=== PATIENT | male | born 1940 | race Caucasian/White ===

== ENCOUNTER 2017-04-09 11:05 | Day surgery (SDC) | payer OTHER ==
[2017-04-09] VITALS (8 sets, daily range): BP systolic 108–153; BP diastolic 62–96; PULSE 50–70; RESP 10–18; O2SAT 92–97
[~2017-04-09] VITALS: Ht 185.4 cm; Wt 116.2 kg
[~2017-04-09 11:05] MED LIST: AMLO5TAB2 PO; ASPI-973 PO; Bupivacaine Liposome 1.3% 20 mL Inj INFILTRATE SCH; CeFAZolin Inj 2 GM in IV Premix 1 EACH IV SCH; LEVO137T2 PO; LISI40TA PO; Lactated Ringer's 1,000 ML IV ONE; Lactated Ringer's 1,000 ML IV SCH; PROP40TA5 PO; Vancomycin Inj 2,000 MG in 0.9% Sodium Chloride 500 ML IV SCH
[2017-04-09] MEDS ORDERED: fentaNYL-PF 50 mCg/mL 2 mL Inj ONE (11:06)
[2017-04-09] MEDS ORDERED: Rocuronium 10 mg/mL 5 mL Inj ONE (11:06)
[2017-04-09] MEDS ORDERED: Glycopyrrolate 0.2 MG/ML 1mL Inj ONE (11:06)
[2017-04-09] MEDS ORDERED: Ondansetron 2 mg/mL 2 mL Inj ONE (11:06)
[2017-04-09] MEDS ORDERED: Neostigmine 1 mg/mL 10 mL Inj ONE (11:06)
[2017-04-09] MEDS ORDERED: Dexamethasone 4 mg/mL Inj ONE (11:06)
[2017-04-09] MEDS ORDERED: Propofol 10,000 mCg/mL 20 mL Inj ONE (11:06)
[2017-04-09] MEDS ORDERED: CeFAZolin 2 Gm/50 mL D5W Duplex Bag IV ONE (11:14)
[2017-04-09] MEDS ORDERED: Tranexamic Acid 100 mg/mL 10 mL Inj ONE (13:02)
[2017-04-09] MEDS ORDERED: 0.9% Sodium Chloride 100 ML ONE (13:02)
[2017-04-09] MEDS ORDERED: MetoCLOpramide 5 mg/mL 2 mL Inj IVPUSH PRN (13:10)
[2017-04-09] MEDS ORDERED: Labetalol 5 mg/mL 4 mL Inj IV PRN (13:10)
[2017-04-09] MEDS ORDERED: Lactated Ringer's 1,000 ML IV SCH (13:10)
[2017-04-09] MEDS ORDERED: fentaNYL-PF 50 mCg/mL 2 mL Inj IVPUSH PRN (13:10)
[2017-04-09] MEDS ORDERED: Phenylephrine 10,000 mCg/mL Inj IVPUSH PRN (13:10)
[2017-04-09] MEDS ORDERED: Ondansetron 2 mg/mL 2 mL Inj IVPUSH PRN (13:10)
[2017-04-09] MEDS ORDERED: Lactated Ringer's 500 ML IV PRN (13:10)
[2017-04-09] MEDS ORDERED: EPHEDrine Sulfate 50 mg/mL Inj IVPUSH PRN (13:10)
[2017-04-09] MEDS ORDERED: HYDROmorphone 1 mg/mL Inj IVPUSH PRN (13:10)
[2017-04-09] MEDS ORDERED: Atropine 0.4 mg/mL Inj IVPUSH PRN (13:10)
--- NOTE | 2017-04-09 13:10 | PCM.HPANE ---
Patient Data Surgeon Admitting Provider: Attending Provider:Eduardo Jay MD Primary Care Physician:Colleen Other Provider:Todd Ramos Anesthesia Reason for Visit Right Knee Arthritis Ht/WT & BMI Height (Feet): 6 Height (Inches): 1 Weight (Kilograms): 116.2 Body Mass Index 33.00 Allergies Coded Allergies: No Known Allergies (Unverified , 03/30/17) Past Anesthesia History Anesthesia History: Denies:: Abnormal Airway, Anesthesia Reactions, Difficult Intubation, Fam Anesthesia Reaction, Fam Malignant Hypertherm, Malignant Hyperthermia Diabetes History Hx Diabetes?: No MRSA MRSA: No Medications Blood Thinner: Aspirin Hypertension Medication: Yes Home Meds Incl Beta Endy: Yes Date Beta Endy Taken: Apr 09, 2017 Time Beta Endy Taken: 814 Previous Beta Endy Dose >24: Previous Dose <24 Hours Reported Medications Propranolol HCl 40 Mg [id number] Mg PO BID Ref 0 03/30/17 Lisinopril 40 Mg [id number] Mg PO DAILY 30 Days Ref 0 03/30/17 Levothyroxine 137 Mcg [id number] Mcg PO DAILY Ref 0 03/30/17 Aspirin 81 Mg [id number] Mg PO DAILY Ref 0 03/30/17 Amlodipine 5 Mg Tablet5 Mg PO DAILY Ref 0 03/30/17 History History of ENT Problems?: Yes HEENT History: Positive for:: Hearing Problem Sinus Problem (post nasal drip ) Denies:: Abnormal Airway (hx of glottic spasm with panic attacks) Cataracts Difficult Intubation Dysphagia Glaucoma TMJ Denture Type: None Teeth Condition: Within Normal Limits Hx of Heart Problems?: Yes Cardiovascular History: Positive for:: Hypertension Denies:: AICD Abdominal Aortic Aneurism Atrial Fibrillation Cardiac Surgery Coronary Artery Disease Edema Heart Murmur Irregular Heartbeat Pacemaker Peripheral Vascular Other Cardiac History: denies CP/GEIGER > 4 METS Hx of Respiratory Problem?: Yes Respiratory History: Positive for:: Use of C-PAP Machine Denies:: Asthma COPD Emphysema Oxygen Administration Pneumonia Tuberculosis Use of Inhalers / NEBS Hx Neurologic Problems?: Yes Neurological History: Positive for:: TIA (10 years ago- no residual ) Denies:: CVA Headaches Multiple Sclerosis Parkinson's Disease Seizures Hx of GI Problems?: No Other GI Pertinent History: hx of inguinal hernia repair Hx of Problems?: No Genitourinary History: Denies:: Kidney Stones Urinary Tract Infection Male Hx: Positive for:: Prostate Problems (PSA being monitored) Testicular Surgery (hx of left partial orchiectomy) Skin History: Denies:: History Skin Disorders? Pressure Ulcers Hx Musculoskeletal Problems?: Yes Musculoskeletal History: Positive for:: Back Injury (low back pain) Degenerative Joint Musculoskeletal Trauma (right knee current admission problem) Osteoarthritis (left knee also symptomatic ) Denies:: Fibromyalgia Joint Replacement Myasthenia Gravis Systemic Lupus Hx of Psycho/Social Problems?: No Psycho Social History: Denies:: Anxiety Hx Depression Hx Surgeries?: Yes (vas, left partial orchiectomy, inguinal hernia ) Hx Any Other Health Problems?: Yes Other History: Positive for:: Cancer (right forearm forearm ) Denies:: Thyroid Disease History Blood Transfusions: Positive for:: Accept Blood Products? Denies:: Blood Transfusions Hx Diabetes: No Hx Alcohol Use: YesAlcoholic Drinks Per Day: holidays onlyHx Substance Use: No (remote hx )Have You Smoked inLast 12 mo: No Stop/Bang S-Snoring: Do You Snore Loudly: No T-Tired: feel tired, fatigued: No O-Obsered: Observed not breath: No P-Blood Pressure: treated: Yes B- Body Mass Index > 35 kg/m2: Yes A- Age over 50: Yes N- Neck Large Circumference: No G- Gender Male: Yes JANET Total Score: 4 JANET Risk Assessment: High Risk, =/>3 Yes Risk Assessment Category Category 1A: Patient has history of documented sleep apnea, and HAS NOT received any narcotic, sedative or anesthesia administration during this stay. Category 1B: Patient has history of documented sleep apnea, and HAS received any narcotic , sedative or anesthesia administration during this stay Category 2: Patient has SUSPECTED Obstructive Sleep Apnea, and HAS received any narcotic , sedative or anesthesia administration during this stay. Category 3: Patient has SUSPECTED Obstructive Sleep Apnea and HAS NOT received narcotic, sedative or anesthesia administration during this stay. Category 4: Outpatient in Procedural Areas with known sleep apnea or who screen positive for High Risk via the STOP/BANG questionnaire. Exam Exam Vital Signs Vital Signs Date Time Temp Pulse Resp B/P Pulse Ox O2 Delivery O2 Flow Rate FiO2 04/09/17 11:40 36.4 70 16 153/96 96 Room Air General Appearance: Alert, Oriented X3, Cooperative, No Acute Distress HEENT/AIRWAY: MP 2 Lungs: Clear to Auscultation, Normal Air Movement Heart: Exam Unremarkable, Regular Rate/Rhythm, No Murmurs/Rubs/Gallops Meds/Labs/Diagnostics Admission Meds Current Medications Lactated Ringer's (Lr) 1,000 ml @ 120 mls/hr [id number] ONCE IV Last administered on 04/09/17 11:40; Start 04/09/17 at 05:00; Stop 04/09/17 at 13:19 Plan Impression Patient chart reviewed, patient interviewed and anesthestic plan with risks, benefits, and alternatives discussed, and informed consent obtained. NPO per Anesth. Guidelines: Yes ASA Physical Status: ASA2 Mod Systemic Disease Anesthetic Plan: GA Bene/Risks/Altern/Consents: Yes HP Complete Prior to Induction: Yes Dante Espinoza MD Apr 09, 2017 12:04
[2017-04-09] MEDS ORDERED: Bupivacaine-MPF 0.5% W/EPI 30 mL Inj INFILTRATE ONE (13:56)
[2017-04-09] MEDS ORDERED: Bupivacaine Liposome 1.3% 20 mL Inj INFILTRATE ONE (13:56)
[2017-04-09] MEDS ORDERED: Gentamicin 40 mg/mL 2 mL Inj IRRIGATION ONE (13:56)
[2017-04-09] MEDS ORDERED: Lactated Ringer's 1,000 ML IV ONE (14:33)
[2017-04-09] MEDS ORDERED: hydrOXYzine Pamoate 25 mg Capsule PO PRN (15:00)
[2017-04-09] MEDS ORDERED: oxyCODONE-Acetamin 5-325 mg Tablet PO PRN (15:00)
[2017-04-09] MEDS ORDERED: Ketorolac 15 mg/mL Inj IVPUSH ONE (15:00)
--- NOTE | 2017-04-09 15:04 | PCM.ANEP1 ---
Post Anesthesia PACU Phase 1 Assessment Vital Signs Vital Signs Date Time Temp Pulse Resp B/P Pulse Ox O2 Delivery O2 Flow Rate FiO2 04/09/17 15:00 51 15 122/78 97 Simple Mask 10 04/09/17 14:55 55 16 130/82 97 Simple Mask 10 04/09/17 14:50 37.1 55 18 127/79 97 Simple Mask 10 04/09/17 11:40 36.4 70 16 153/96 96 Room Air Anesthetic Administered: GA Level of Alertness: Awake, talking ZAMAN's with Equal Strength: Yes Pain: No Nausea or Vomiting: No CV Function & Hydration Stable: Yes Airway Device: Endotrachial Tube Oxygen Delivery: Simple Mask Lungs: Clear to Auscultation, Normal Air Movement PACU Phase 2 Assessment Complications: No Follow up Care: N/A Patient Instructions Provided: N/A Dante Espinoza MD Apr 09, 2017 15:04
--- NOTE | 2017-04-09 17:02 | DRSVH ---
PROCEDURE: X-RAY RIGHT KNEE, ONE OR TWO VIEWS ([id number]) INDICATIONS: postop TECHNIQUE: 2 view(s) of the knee acquired. COMPARISON: [facility], CR, XR KNEE ARTHRITIC SERIES RT, 03/13/2017, 9:04. FINDINGS: Bones: Patient is status post medial compartment knee joint arthroplasty. Hardware components are i n expected positions. Visualized bony structures are intact. Soft tissues: Overlying postoperative changes are noted. IMPRESSION: Expected appearance following medial compartment arthroplasty. Dictated by: Aryan Hernandez M.D. on 04/09/2017 at 17:00 Approved by: Aryan Hernandez M.D. on 04/09/2017 at 17:01
--- NOTE | 2017-04-09 21:21 | OP ---
[address] [address] OPERATIVE REPORT PATIENT: FERMIN MARQUEZ : 1940 MR#: [id number] ADMIT: 04/09/2017 JOB ID: [id number] DATE OF SURGERY: 04/09/2017 PREOPERATIVE DIAGNOSIS(ES): Severe medial compartment osteoarthritis, right knee. POSTOPERATIVE DIAGNOSIS(ES): Severe medial compartment osteoarthritis, right knee. PROCEDURE: Unicompartmental knee arthroplasty. SURGEON: Eduardo Jay MD. RN MILITARY: Areli Smith PA-C. COMPLICATIONS: None. INDICATIONS: This gentleman has had severe progressive osteoarthritic symptoms uncontrolled by conservative treatment techniques. He elects to proceed with the unicompartmental knee arthroplasty. He understands and accepts the potential for risks and complications, which includes but is not limited to, infection, thromboembolic, neurovascular events, as well as a potential for progressive arthritis in unresurfaced compartments and implant failure. PROCEDURE IN DETAIL: The patient was prepped and draped in usual sterile fashion. An anteromedial approach was made. Dissection was carried down. Frontal bossing and a patellar osteophyte was removed. The alignment apparatus was assembled and the proximal tibial cut was made. The tibial cut was completed with the sagittal blade. The bone fragments were removed. A 9 spacer block was applied. Excellent alignment. Soft tissue tension was achieved and the distal femoral cut was made. The femur was sized to a 7 chamfer cutting block, fixed in appropriate position and rotation, and drill holes and chamfer cuts were made. The tibia was subsequently sized to a 6 provisionally fixed. Drill holes were made. Trial reductions confirmed 9 mm polyethylene as appropriate. All meniscal tissue and osteophytes removed. Pressurized lavage was followed by pressurized cementation. Cut margins were injected with Marcaine with epi mixture. Excess cement removed during the curing process. Final construct assembled. Tourniquet let down. Hemostasis achieved. Deep Hemovac drain left. Deep closure with #2 Quill deep followed by 2-0 Vicryl, 3-0 Vicryl and a 4-0 intracuticular. Steri-Strips applied. The patient was taken to the recovery room in stable condition. He tolerated the procedure well. There were no complications.
== END 2017-04-09 23:59 | disposition home or self-care (01) ==
LOC: SAS 11:05
PROVIDERS: ATTEND Orthopaedic Surgery
DX: M17.11 Unilateral primary osteoarthritis, right knee (principal); I10 Essential (primary) hypertension; M17.12 Unilateral primary osteoarthritis, left knee; Z79.82 Long term (current) use of aspirin; Z85.828 Personal history of other malignant neoplasm of skin; Z86.73 Personal history of transient ischemic attack (TIA), and cerebral infarction without residual deficits
CPT/HCPCS: 27446; 73560; C1713; C1776; J0690; J1100; J1580; J1885; J2405; J2710; J2765; J3010; J3370; J7040; J7120; Q0177